=== PATIENT | male | born 1990 | race Caucasian/White ===

== ENCOUNTER 2021-08-20 12:40 | Emergency (ER) | payer OTHER, SELFPAY ==
--- NOTE | ~2021-08-20 | CT_ITS ---
EXAMINATION: CT ABDOMEN AND PELVIS WITH CONTRAST CLINICAL INFORMATION: Testicular/penile pain COMPARISON: None TECHNIQUE: Multidetector volumetric images were obtained from the superior aspect of the liver through the pubic symphysis following administration 85 mL of Omnipaque 350 intravenous contrast. Sagittal and coronal reformatted images were obtained on the technologist's workstation. Oral contrast: No This CT examination was performed using dose optimization techniques as appropriate, variously including the following: *Automated exposure control *Adjustment of mA and/or kV according to patient size (this includes techniques or standardized protocols for targeted exams where dose is matched to indication/reason for exam; i.e. extremities or head) *Use of iterative reconstruction technique DLP: 542 mGy-cm FINDINGS: LUNG BASES: The visualized lung bases are unremarkable. LIVER, GALLBLADDER, AND BILIARY TREE: The liver is normal in size, shape, and attenuation. No focal hepatic lesion or biliary ductal dilatation is present. The gallbladder is unremarkable with no evidence of radiopaque gallstones, gallbladder wall thickening, or obvious pericholecystic inflammatory changes. PANCREAS: Unremarkable. SPLEEN: Unremarkable. ADRENAL GLANDS: Unremarkable. KIDNEYS AND URETERS: There is a 3 mm stone present in the right ureterovesical junction. There is some minimal prominence of the collecting system on the right but no gross hydronephrosis. A single subcentimeter Bosniak class I cyst is noted in the right kidney. The left kidney appears unremarkable with 2 benign Bosniak class I renal cysts. The kidneys are normal in size, shape, and attenuation. No left-sided hydronephrosis, hydroureter, or calculi seen. No perinephric stranding. BLADDER: The bladder is not well distended and demonstrates a symmetrically thickened wall. GASTROINTESTINAL TRACT: The small and large bowel are unremarkable. The appendix is unremarkable. ABDOMINAL WALL: No significant hernia is appreciated. LYMPH NODES: Normal. VASCULAR: Unremarkable. PELVIC VISCERA: Unremarkable. OSSEOUS STRUCTURES: Unremarkable. CT/CT abdomen pelvis w con IMPRESSION: Distal right ureteral 3 mm calculus at the ureterovesical junction causing minimal obstruction. Fleischner guidelines were followed.
--- NOTE | ~2021-08-20 | US_ITS ---
EXAMINATION: US SCROTUM CLINICAL INFORMATION: Penile/scrotal pain. Rule out torsion.. COMPARISON: None TECHNIQUE: A sonogram of the scrotum was performed assessing greenberg-scale appearance and color Doppler flow. Spectral Doppler analysis of the arterial and venous flow were performed in the testes bilaterally. FINDINGS: RIGHT: Right testicle measures 4.5 x 2.3 x 3.5 cm, volume 18 mL. No focal testicular parenchymal lesions are visualized. Spectral Doppler analysis of the arterial and venous flow is normal in the right testis. Right epididymal head is normal in size. There is a 9 mm cyst within the right epididymal head. Small right-sided hydrocele. No right-sided varicocele. LEFT: Left testicle measures 3.6 x 2.4 x 2.7 cm, volume 12 mL. No focal testicular parenchymal lesions are visualized. Spectral Doppler analysis of the arterial and venous flow is normal in the left testis. Left epididymal head is normal in size. No left hydrocele or varicocele is seen. US/US scrotum doppler IMPRESSION: -Normal arterial and venous waveforms within both testicles. -Small right-sided hydrocele.
[2021-08-20 12:48] VITALS: BP 108/69; BP 127/76; PULSE 56; PULSE 98; RESP 16; TEMP 36.6; O2SAT 100; O2SAT 99; BMI 25.1
[2021-08-20 13:42] LABS: Basophils Percent Auto 0.5 % (0-2); Eosinophils Absolute Auto 0.1 X10*3/uL (0.0-0.4); Eosinophils Percent Auto 0.6 % (0-4); Hematocrit 42.2 % (42.0-52.0); Hemoglobin 14.7 g/dl (14.0-18.0); Imm Gran Abs Auto 0.02 X10*3/uL (0.00-0.03); Imm Gran Pct Auto 0.2 % (0.0-0.4); Lymphocytes Absolute Auto 1.7 X10*3/uL (1.2-4.9); MANUAL DIFF FLAG NO; Mean Corpuscular HGB Conc 34.8 g/dl (31.0-36.0); Mean Corpuscular Hemoglobin 30.7 pg (27.0-33.0); Mean Corpuscular Volume 88.1 fL (80.0-98.0); Mean Platelet Volume 9.5 fL (9.4-12.4); Monocytes Absolute Auto 0.5 X10*3/uL (0.1-1.2); Monocytes Percent Auto 5.8 % (2-11); Neutrophils Absolute Auto 6.2 x10*3/uL (2.0-8.3); Neutrophils Percent Auto 72.9 % (45-73); Platelet Count 212 X10*3/uL (160-400); Red Blood Count 4.79 X10*6/uL (4.60-5.80); Red Cell Distribution Width 11.7 % (11.0-16.0); White Blood Count 8.6 X10*3/uL (4.8-10.8)
[2021-08-20 13:45] VITALS: BP 126/77; PULSE 52; O2SAT 99
[2021-08-20 13:59] LABS: Alanine Aminotransferase 12 U/L (0-40); Albumin Level 4.4 g/dL (3.5-5.0); Alkaline Phosphatase 68 U/L (39-117); Anion Gap 8 (12-20); Aspartate Amino Transferase 20 U/L (5-37); Bilirubin Direct 0.2 mg/dL (0.0-0.5); Bilirubin Total 0.5 mg/dL (0.0-1.0); Blood Urea Nitrogen 12 mg/dL (9-16); Calcium 9.7 mg/dL (8.4-10.2); Carbon Dioxide 31 mmol/L (22-29); Chloride 104 mmol/L (96-108); Creatinine Clr Calc Pharmacy 123.9; Estimated Glomerular Filt Rate > 60; Glucose Random 117 mg/dL (60-115); Potassium 4.1 mmol/L (3.3-5.1); Sodium 139 mmol/L (135-145); Total Protein 6.9 g/dL (6.5-8.0)
--- NOTE | 2021-08-20 14:13 | ED_ITS ---
HPI - Male Genitourinary General Chief complaint: Urogenital-Male Stated complaint: groin pain Time Seen by Provider: 08/20/21 12:56 Source: patient and EMS Mode of arrival: EMS History of Present Illness HPI Narrative: 31-year-old male with a past medical history of ADHD, renal stones presenting to the ED complaining of sudden onset penile/testicular pain 1 hour [employer] with associated nausea and lower abdominal pain. Reports attempted to void and had difficulty. Denies fever, CP/SOB, flank pain, vomiting/diarrhea, hematuria, penile discharge/lesions, concern for STI, trauma Complaint: testicle pain Onset (ago): hour(s) Duration: constant Related Data Previous Rx's Medication Instructions Recorded ketorolac 10 mg tablet 10 mg PO TID PRN 5 Days #15 tab 08/20/21 prednisone 20 mg tablet 20 mg PO DAILY #5 tab 08/20/21 tamsulosin 0.4 mg capsule (Flomax) 0.4 mg PO DAILY #14 cap 08/20/21 Allergies Allergy/AdvReac Type Severity Reaction Status Date / Time No Known Allergies Allergy Verified 08/20/21 13:07 Review of Systems Review of Systems: Constitutional: No Fever, No Chills, No Fatigue, No Malaise ENT/Mouth: No Hearing loss, No Ear Pain, No Nasal Congestion, No Hoarseness, No sore throat Eyes: No Eye Pain, No Swelling, No Redness, No Discharge Cardiovascular: No Chest Pain, No SOB, No Edema, No Palpitations Respiratory: No Cough, No Sputum, No Dyspnea Gastrointestinal: + Nausea, No Vomiting, No Diarrhea, No Constipation, + Abdominal pain Genitourinary: No irregular bleeding, No Dysuria, No Urinary Frequency, No Hematuria, No Urinary Incontinence, No Urgency, No Flank Pain, + Urinary Flow Changes, + Hesitancy Musculoskeletal: No joint pain, No Myalgias, No Joint Swelling Skin: No Skin Lesions, No rash Neuro: No Weakness, No Numbness, No Loss of Consciousness, No Dizziness, No Headache Yes all other systems are reviewed and are negative [facility] Past Medical History Attestation statement: The following information was validated with the patient. Medical History ADHD Kidney stone Social History Social History Advance Directives: No Advance Directives Information Provided: Yes Physical Exam Vital Signs: Vital Signs: Last Vital Signs Temp 98.2 F 08/20/21 17:48 Pulse 75 08/20/21 17:48 Resp 18 08/20/21 17:48 BP 138/79 08/20/21 17:48 Pulse Ox 98 08/20/21 17:48 BMI result Body Mass Index 25.1 Const: General: cooperative, healthy appearing and no acute distress Orientation/consciousness: patient oriented x3 Limitations: no limitations HENMT: Head: Yes normal to inspection Ears: hearing grossly normal bilaterally General nose exam: Normal external nose present Face and sinus: Yes normal facial exam Eyes: General: appearance normal, both eyes and all related structures EOM: EOMs intact bilaterally Neck: Neck: Yes normal visual inspection and Yes no meningeal signs Resp: Effort & Inspection: normal respiratory effort and no respiratory distress Auscultation: clear to auscultation bilaterally Cardio: Rate: regular rate Heart sounds: S1 normal heart sound present and S2 normal heart sound present GI: Inspection: Yes normal to inspection Palpation (GI): Soft to palpation, Tenderness to palpation present (GI) in the RLQ and suprapubicly, no guarding and not rigid : Other: + diffuse penile shaft tenderness, +L testicular tenderness. No appreciable her nias. No lesions General: Yes no CVA tenderness Male General Exam: No Genital lesions present Penis: circumcised, no ecchymosis, not erythematous, no swelling, no ulcerations and No Genital lesions present Meatus: meatus normal Testes: testicular tenderness on the left Back/Spine/Pelvis: Back: no CVA tenderness Skin: Rashes: no rashes Wounds: no wounds Neuro: General: patient oriented x3 and no meningeal signs Gait exam (Neuro): Normal gait present Extrem: General: Yes normal to inspection Course Course Course Narrative: -labs unremarkable US scrotum doppler MPRESSION: -Normal arterial and venous waveforms within both testicles. -Small right-sided hydrocele. -1417--results discussed with patient. On re-evaluation reports pain mild improvement in scrotal/penile pain however now complaining of abdominal pain. On re-evaluation no CVAT, abdomen soft now with RLQ ttp > will obtain CT AP for further evaluation, r/o appendicitis -UA negative, CT/NG negative CT abdomen pelvis w con IMPRESSION: Distal right ureteral 3 mm calculus at the ureterovesical junction causing minimal obstruction.? > urology Selden texted without response ? >> results discussed with patient. Reports symptomatic improvement, calm & comfortable at present, vital signs stable, given p.o. Flomax. Discussed worri some signs and symptoms and strict return precautions and needed close follow-up with Urology. He verbalized understanding -1839-- Dr. Yanes message back recommended prednisone 20 mg x 5 days in addition to Flomax, prescription sent in, called to inform patient of additional prescription MDM - Male Genitourinary MDM Narrative Medical decision making narrative: 31-year-old male with a past medical history of ADHD, renal stones presenting to the ED complaining of sudden onset penile/testicular pain 1 hour [employer] with associated nausea and lower abdominal pain. On exam vital signs stable, NAD, abd omen soft with suprapubic tenderness, exam consistent with penile shaft and tenderness and L testicular tenderness. No appreciable deformity/lesions. No evidence of trauma. Concern for testicular torsion vs epididymitis/orchitis vs UTI. Renal stone on differential however lower. Lower concern for appendicitis/diverticulitis Plan: Labs, UA, CT NG, scrotal ultrasound, re-evaluate Differential Diagnosis Differential diagnosis: Likely urinary tract infection, urethritis, epididymitis and acute retention of urine Medical Records Attestation: I reviewed the patient's medical records. Lab Data Attestation: I reviewed the patient's lab results. Result diagrams: 08/20/21 13:37 08/20/21 13:37 Labs: Lab Results 08/20/21 08/20/21 08/20/21 Range/Units 13:37 13:37 14:42 WBC 8.6 (4.8-10.8) X10*3/uL RBC 4.79 (4.60-5.80) X10*6/uL Hgb 14.7 (14.0-18.0) g/dl Hct 42.2 (42.0-52.0) % MCV 88.1 (80.0-98.0) fL MCH 30.7 (27.0-33.0) pg MCHC 34.8 (31.0-36.0) g/dl RDW 11.7 (11.0-16.0) % Plt Count 212 (160-400) X10*3/uL MPV 9.5 (9.4-12.4) fL Immature Gran % (Auto) 0.2 (0.0-0.4) % Neut % (Auto) 72.9 (45-73) % Lymph % (Auto) 20.0 (20-40) % [place] % (Auto) 5.8 (2-11) % Eos % (Auto) 0.6 (0-4) % Baso % (Auto) 0.5 (0-2) % Lymph # (Auto) 1.7 (1.2-4.9) X10*3/uL [place] # (Auto) 0.5 (0.1-1.2) X10*3/uL Eos # (Auto) 0.1 (0.0-0.4) X10*3/uL Baso # (Auto) 0.0 (0.0-0.2) X10*3/uL Abs Immat Gran (auto) 0.02 (0.00-0.03) X10*3/uL Absolute Neuts (auto) 6.2 (2.0-8.3) x10*3/uL Absolute Nucleated RBC 0.000 (0.0-0.012) X10*3/uL Nucleated RBC % (auto) 0.0 (0.0-0.2) /100WBC Sodium 139 (135-145) mmol/L Potassium 4.1 (3.3-5.1) mmol/L Chloride 104 (96-108) mmol/L Carbon Dioxide 31 H (22-29) mmol/L Anion Gap 8 L (12-20) BUN 12 (9-16) mg/dL Creatinine 0.90 (0.5-1.4) mg/dL Estim Creat Clear Calc 123.9 Estimated GFR > 60 Random Glucose 117 H (60-115) mg/dL Calcium 9.7 (8.4-10.2) mg/dL Total Bilirubin 0.5 (0.0-1.0) mg/dL Direct Bilirubin 0.2 (0.0-0.5) mg/dL AST 20 (5-37) U/L ALT 12 (0-40) U/L Alkaline Phosphatase 68 (39-117) U/L Total Protein 6.9 (6.5-8.0) g/dL Albumin 4.4 (3.5-5.0) g/dL Urine Color YELLOW Urine Appearance HAZY Urine pH 7.0 (5.0-8.0) Ur Specific Auxier 1.015 (1.005-1.025) Urine Protein NEG (NEG-TRACE) MG/DL Urine Glucose (UA) NEG (NEG) MG/DL Urine Ketones NEG (NEG) MG/DL Urine Blood TRACE (NEG) Urine Nitrite NEG (NEG) Ur Leukocyte Esterase NEG (NEG) Urine RBC 0-2 (0) /HPF Urine WBC 0-2 (0-4) /HPF Ur Squamous Epith Cells NONE /LPF Urine Bacteria NONE /LPF Urine Mucus 1+ /LPF Chlam trachomat DNA PCR (Not Detect.) N.gonorrhoeae DNA (PCR) (Not Detect.) 08/20/21 Range/Units 14:42 WBC (4.8-10.8) X10*3/uL RBC (4.60-5.80) X10*6/uL Hgb (14.0-18.0) g/dl Hct (42.0-52.0) % MCV (80.0-98.0) fL MCH (27.0-33.0) pg MCHC (31.0-36.0) g/dl RDW (11.0-16.0) % Plt Count (160-400) X10*3/uL MPV (9.4-12.4) fL Immature Gran % (Auto) (0.0-0.4) % Neut % (Auto) (45-73) % Lymph % (Auto) (20-40) % [place] % (Auto) (2-11) % Eos % (Auto) (0-4) % Baso % (Auto) (0-2) % Lymph # (Auto) (1.2-4.9) X10*3/uL [place] # (Auto) (0.1-1.2) X10*3/uL Eos # (Auto) (0.0-0.4) X10*3/uL Baso # (Auto) (0.0-0.2) X10*3/uL Abs Immat Gran (auto) (0.00-0.03) X10*3/uL Absolute Neuts (auto) (2.0-8.3) x10*3/uL Absolute Nucleated RBC (0.0-0.012) X10*3/uL Nucleated RBC % (auto) (0.0-0.2) /100WBC Sodium (135-145) mmol/L Potassium (3.3-5.1) mmol/L Chloride (96-108) mmol/L Carbon Dioxide (22-29) mmol/L Anion Gap (12-20) BUN (9-16) mg/dL Creatinine (0.5-1.4) mg/dL Estim Creat Clear Calc Estimated GFR Random Glucose (60-115) mg/dL Calcium (8.4-10.2) mg/dL Total Bilirubin (0.0-1.0) mg/dL Direct Bilirubin (0.0-0.5) mg/dL AST (5-37) U/L ALT (0-40) U/L Alkaline Phosphatase (39-117) U/L Total Protein (6.5-8.0) g/dL Albumin (3.5-5.0) g/dL Urine Color Urine Appearance Urine pH (5.0-8.0) Ur Specific Auxier (1.005-1.025) Urine Protein (NEG-TRACE) MG/DL Urine Glucose (UA) (NEG) MG/DL Urine Ketones (NEG) MG/DL Urine Blood (NEG) Urine Nitrite (NEG) Ur Leukocyte Esterase (NEG) Urine RBC (0) /HPF Urine WBC (0-4) /HPF Ur Squamous Epith Cells /LPF Urine Bacteria /LPF Urine Mucus /LPF Chlam trachomat DNA PCR NOT DETECTED (Not Detect.) N.gonorrhoeae DNA (PCR) NOT DETECTED (Not Detect.) Discharge Plan Discharge Clinical Impression: Calculus of ureterovesical junction (UVJ), Hydrocele Patient Disposition: Home, Self-Care Instructions: Hydrocele (ED), Ureteral Stones (ED) Additional Instructions: You have a 3 mm stone at her distal right ureter, Flomax to help dilate the ureter to the aid in passing the stone. The stone is causing minimal obstruction. IF YOU HAVE ANY DIFFICULTY/INABILITY TO URINATE, PERSISTENT NESTOR SEA/VOMITING, INABILITY TO TOLERATE ORALLY, OR FEVER RETURN TO THE ED IMMEDIATELY Please follow-up with urology Prescriptions: New tamsulosin [Flomax] 0.4 mg capsule 0.4 mg PO DAILY Qty: 14 0RF ketorolac 10 mg tablet 10 mg PO TID PRN (Reason: pain) 5 Days Qty: 15 0RF prednisone 20 mg tablet 20 mg PO DAILY Qty: 5 0RF Referrals: Saúl Yanes MD [Physician] - 1 week Interventions: ED Discharge Assessment Last Done: 08/20/21 17:55 Discharge Date/Time: 08/20/21 18:06
[2021-08-20 14:58] LABS: Appearance Urine HAZY; Color Urine YELLOW; Glucose Urine UA NEG (NEG); Leukocyte Esterase Urine NEG (NEG); Nitrite Urine NEG (NEG); Specific Gravity - Urine 1.015 (1.005-1.025); UACC Culture Trigger NO; Urine Blood TRACE (NEG); Urine Ketones NEG (NEG); Urine Protein NEG (NEG-TRACE)
[2021-08-20] MEDS: iohexoL 350 MG/ML 100 ML INFUS..BTL 85 ML IV (15:06)
[2021-08-20 15:14] LABS: RBC Urine 0-2 /HPF (0); WBC Urine 0-2 /HPF (0-4)
[2021-08-20 15:15] LABS: Mucus Urine 1+ /LPF
[2021-08-20] MEDS: Ketorolac Tromethamine 30 MG/ML VIAL IVPUSH (15:24)
[2021-08-20 17:09] LABS: CT PCR NOT DETECTED (Not Detect.); NG PCR NOT DETECTED (Not Detect.)
[2021-08-20 17:48] VITALS: BP 138/79; PULSE 75; RESP 18; TEMP 36.8; O2SAT 98
[2021-08-20] MEDS: Tamsulosin HCL 0.4 MG CAPSULE PO (17:52)
== END 2021-08-20 18:06 | disposition home or self-care (01) ==
PROVIDERS: Physician Assistant; Emergency Provider Internal Medicine; PCP Family Medicine
DX: N43.3 Hydrocele, unspecified (principal); N20.2 Calculus of kidney with calculus of ureter; R10.30 Lower abdominal pain, unspecified; Z87.442 Personal history of urinary calculi
CPT/HCPCS: 36415; 51798; 74177; 80048; 80076; 81001; 85025; 87491; 87591; 93975; 96374; 99284; J1885; Q9967

== ENCOUNTER 2022-11-22 08:00 | Outpatient (RCR) | payer OTHER, SELFPAY ==
[2022-11-21 12:02] VITALS: BP 131/89; PULSE 53; TEMP 37
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
--- NOTE | 2022-11-22 15:20 | HO.PHP ---
[facility] staff member reached out to Berkley to inform her that Manjit voluntarily discharged himself due to feeling as though the program was not the right fit for him. [facility] staff disclosed that he attended yesterday and part of today for treatment. [facility] staff asked if she has the next scheduled time of when they will be meeting. Berkley noted that she offered him an appointment for tomorrow and is awaiting a response back. Berkley disclosed if he does not take that appointment tomorrow, she will be seeing him next week. [facility] staff was receptive.
== END 2022-11-22 23:59 | disposition home or self-care (01) ==
LOC: HO.IOP 08:00
PROVIDERS: Visit Provider Psychiatry & Neurology Psychiatry
DX: F33.2 Major depressive disorder, recurrent severe without psychotic features (principal); F41.1 Generalized anxiety disorder; R45.851 Suicidal ideations; F90.9 Attention-deficit hyperactivity disorder, unspecified type; F12.20 Cannabis dependence, uncomplicated; Z79.899 Other long term (current) drug therapy
CPT/HCPCS: 90791; S9480